=== PATIENT | male | born 1980 | race Caucasian/White ===

== ENCOUNTER 2019-10-19 11:06 | Emergency (ER) | payer MEDICAID ==
[~2019-10-19] VITALS: Ht 182.9 cm; Wt 121.4 kg
[~2019-10-19 11:06] MED LIST: OXYC-302 PO
[2019-10-19 11:16] VITALS: BP 144/82
[2019-10-19 12:06] LABS: RAPID INFLUENZA A Negative (Negative); RAPID INFLUENZA B Negative (Negative)
== END 2019-10-19 12:19 | disposition home or self-care (01) ==
LOC: ED 12:10
DX: J06.9 Acute upper respiratory infection, unspecified (principal); R50.9 Fever, unspecified; I10 Essential (primary) hypertension; G89.29 Other chronic pain; F17.200 Nicotine dependence, unspecified, uncomplicated
CPT/HCPCS: 71046; 87400; 99284

== ENCOUNTER 2020-11-03 12:21 | Emergency (ER) | payer MEDICAID ==
[~2020-11-03] VITALS: Ht 180.3 cm; Wt 127.0 kg
[~2020-11-03 12:21] MED LIST changes: -OXYC-302 PO; +OXYC1TAB14 PO
--- NOTE | 2020-11-03 13:09 | NUR ---
pt in bed, requesting pain and n\v meds
[2020-11-03] MEDS ORDERED: SODIUM CHLORIDE 0.9% 1,000ML IVBOLUS ONE (13:30)
[2020-11-03] MEDS ORDERED: HYDROmorphone 1 MG/ML, 1ML INJ IVPush STA (13:30)
[2020-11-03] MEDS: MORPHINE SULFATE 4 MG/ML, 1ML IVPush PRN ×2 (13:30→16:07)
[2020-11-03] MEDS ORDERED: HYDROmorphone 1 MG/ML, 1ML INJ ONE (13:30)
[2020-11-03] MEDS ORDERED: KETOROLAC 30 MG/1 ML IVPush ONE (13:30)
[2020-11-03] MEDS ORDERED: ONDANSETRON 2MG/ML, 2ML ONE (13:30)
[2020-11-03] MEDS ORDERED: ONDANSETRON 2MG/ML, 2ML IVPush ONE (13:30)
[2020-11-03] MEDS ORDERED: SODIUM CHLORIDE FLUSH 10ML SYR IVF ONE (13:30)
[2020-11-03 13:41] LABS: BASOPHILS % (AUTO) 1 % (0-1); EOSINOPHILS % (AUTO) 2 % (1-7); LYMPHOCYTES % (AUTO) 11 % (22-44); MEAN CORPUSCULAR HEMOGLOBIN 29.9 pg (27.5-34.5); MEAN CORPUSCULAR HGB CONC 33.9 g/dL (33.2-36.2); MEAN PLATELET VOLUME 8.3 fL (7.4-10.4); MONOCYTES % (AUTO) 7 % (2-9); NEUTROPHILS % (AUTO) 80 % (42-75); PLATELET COUNT 284 x10^3/uL (130-400); RED BLOOD COUNT 5.47 x10^6/uL (4.38-5.82); RED CELL DISTRIBUTION WIDTH 13.7 % (9.4-14.8)
[2020-11-03 13:51] LABS: ANION GAP 4 mmol/L (5-15); CALCIUM 9.2 mg/dL (8.5-10.1); CHLORIDE 105 mmol/L (98-107)
[2020-11-03 13:55] LABS: ALANINE AMINOTRANSFERASE 35 U/L (12-78); ALKALINE PHOSPHATASE 91 U/L (45-117); BILIRUBIN,TOTAL 0.3 mg/dL (0.2-1.0); CREATININE 1.22 mg/dL (0.7-1.3); TOTAL PROTEIN 7.8 g/dL (6.4-8.2)
[2020-11-03 13:57] LABS: MICROSCOPIC AUTO
--- NOTE | 2020-11-03 14:00 | NUR ---
pt down to ct
[2020-11-03 14:16] LABS: MD SCAN
[2020-11-03] MEDS ORDERED: CEFTRIAXONE PMX 1GM/50ML 50 ML IVPB ONE (15:30)
[2020-11-03] MEDS ORDERED: CEFTRIAXONE PMX 1GM/50ML 50 ML ONE (15:37)
--- NOTE | 2020-11-03 15:47 | NUR ---
pt in bed ivab running
[2020-11-03] MEDS ORDERED: MORPHINE SULFATE 4 MG/ML, 1ML ONE (16:05)
[2020-11-03] MEDS ORDERED: HYDROmorphone 1 MG/ML, 1ML INJ IV ONE (16:30)
[2020-11-03] MEDS ORDERED: SODIUM CHLORIDE 0.9%, 500ML IVBOLUS ONE (16:30)
[2020-11-03 16:42] VITALS: BP 136/68
--- NOTE | 2020-11-03 16:43 | NUR ---
pt in bed iv fluids running
--- NOTE | 2020-11-03 17:30 | NUR ---
pt walked out self with steady gait. if s&s worsen . dc piv
== END 2020-11-03 17:30 | disposition home or self-care (01) ==
LOC: ED 16:41
DX: N13.2 Hydronephrosis with renal and ureteral calculous obstruction (principal); R10.31 Right lower quadrant pain; K59.00 Constipation, unspecified; R11.0 Nausea; I10 Essential (primary) hypertension; Z90.49 Acquired absence of other specified parts of digestive tract
CPT/HCPCS: 36415; 74176; 80053; 81001; 83605; 85025; 87040; 87086; 96361; 96365; 96375; 99285; J0696; J1170; J2270; J2405; J7030; J7040